=== PATIENT | female | born 1950 | race African-American/Black ===

== ENCOUNTER 2016-11-14 18:16 | Emergency (ER) | payer MEDICARE ==
[~2016-11-14] VITALS: Ht 152.4 cm; Wt 63.5 kg
[2016-11-14 18:20] VITALS: BP_SYST 123
[2016-11-14 19:13] LABS: BASOPHILS % (AUTO) 0.3 % (0.0-2.0); EOSINOPHILS # (AUTO) 0.3 K/uL (0.0-0.4); EOSINOPHILS % (AUTO) 3.6 % (0.0-4.0); HEMATOCRIT 33.3 % (36-48); LYMPHOCYTES # (AUTO) 1.6 K/uL (1.0-5.5); LYMPHOCYTES % (AUTO) 22.1 % (20.5-51.5); MEAN CORPUSCULAR HEMOGLOBIN 30 pg (27-31); MEAN CORPUSCULAR HGB CONC 33 % (32-36); MEAN CORPUSCULAR VOLUME 92 fL (79.0-98.0); MONOCYTES # (AUTO) 0.7 K/uL (0.0-1.0); MONOCYTES % (AUTO) 9.3 % (1.7-9.3); NEUTROPHILS # (AUTO) 4.5 K/uL (1.8-7.7); NEUTROPHILS % (AUTO) 64.7 % (40.0-70.0); RED BLOOD CELL COUNT(AUTO) 3.62 MIL/uL (4.2-6.2); RED CELL DISTRIBUTION WIDTH 13.1 % (9.0-15.0); WHITE BLOOD COUNT (AUTO) 7.1 K/uL (4.8-10.8)
[2016-11-14 19:23] LABS: CALCIUM 8.7 mg/dL (8.4-11.0); CREATININE 3.06 mg/dL (0.55-1.30); PLATELET COUNT (AUTO) 231 K/uL (130-430)
[2016-11-14 19:27] LABS: PROTHROMBIN TIME 10.5 SECS (9.5-12.5)
[2016-11-14 19:28] LABS: ALBUMIN 3.4 g/dL (3.4-4.8); TOTAL BILIRUBIN 0.8 mg/dL (0.0-1.0)
[2016-11-14] MEDS ORDERED: POTASSIUM CHLORIDE 20 MEQ TAB.PRT.SR PO ONE (20:15)
[2016-11-14] MEDS ORDERED: NITROGLYCERIN 1 INCH (GM) OINT. TD ONE (20:45)
[2016-11-14 23:39] VITALS: BP_SYST 124
== END 2016-11-14 23:39 | disposition short-term general hospital (02) ==
LOC: SED 18:16
DX: R07.89 Other chest pain (principal); I11.0 Hypertensive heart disease with heart failure; I50.9 Heart failure, unspecified; E11.9 Type 2 diabetes mellitus without complications
CPT/HCPCS: 36415; 71010; 80053; 83880; 84484; 85025; 85610-TC; 85730-TC; 93005; 99285

== ENCOUNTER 2018-04-04 15:11 | Emergency (ER) | payer MEDICARE, MEDICAID ==
[~2018-04-04] VITALS: Ht 152.4 cm; Wt 63.5 kg
[2018-04-04 15:11] VITALS: BP_SYST 133
[2018-04-04 16:44] LABS: BASOPHILS % (AUTO) 0.5 % (0.0-2.0); EOSINOPHILS # (AUTO) 0.1 K/uL (0.0-0.4); EOSINOPHILS % (AUTO) 4.6 % (0.0-4.0); HEMATOCRIT 36.6 % (36-48); HEMOGLOBIN 12.1 g/dL (12.0-16.0); LYMPHOCYTES # (AUTO) 0.8 K/uL (1.0-5.5); LYMPHOCYTES % (AUTO) 24.8 % (20.5-51.5); MEAN CORPUSCULAR HEMOGLOBIN 33 pg (27-31); MEAN CORPUSCULAR HGB CONC 33 % (32-36); MEAN CORPUSCULAR VOLUME 100 fL (79.0-98.0); MONOCYTES # (AUTO) 0.3 K/uL (0.0-1.0); NEUTROPHILS % (AUTO) 59.1 % (40.0-70.0); PLATELET COUNT (AUTO) 133 K/uL (130-430); RED BLOOD CELL COUNT(AUTO) 3.67 MIL/uL (4.2-6.2); RED CELL DISTRIBUTION WIDTH 13.3 % (9.0-15.0); WHITE BLOOD COUNT (AUTO) 3.2 K/uL (4.8-10.8)
[2018-04-04 16:58] LABS: CALCIUM 8.3 mg/dL (8.4-11.0); CREATININE 1.47 mg/dL (0.55-1.30); POTASSIUM 3.9 mmol/L (3.5-5.1); PROTHROMBIN TIME 9.8 SECS (9.5-12.5)
[2018-04-04] MEDS ORDERED: ALBUTEROL SULFATE 0.083% 2.5 MG/3 ML VIAL.NEB INH ONE (17:00)
[2018-04-04 17:03] LABS: ALBUMIN 2.9 g/dL (3.4-4.8); TOTAL BILIRUBIN 0.2 mg/dL (0.0-1.0)
[2018-04-04] MEDS ORDERED: ASPIRIN 81 MG TAB.CHEW PO ONE (18:30)
[2018-04-04 18:59] LABS: BILIRUBIN,URINE NEGATIVE (NEGATIVE); BLOOD, URINE NEGATIVE (NEGATIVE); CLARITY/URINE CLEAR (CLEAR); COLOR,URINE YELLOW (YELLOW); GLUCOSE,URINE NEGATIVE (NEGATIVE); KETONES,URINE NEGATIVE (NEGATIVE); LEUKOCYTE ESTERASE ,URINE NEGATIVE (NEGATIVE); NITRITE, URINE NEGATIVE (NEGATIVE); PH,URINE 5.5 (5.0-8.0); PROTEIN URINE 2+ (NEGATIVE); UROBILINOGEN,URINE 0.2 (0.2-1.0)
[2018-04-04 19:12] LABS: BACTERIA,URINE FEW /HPF (None Seen); MUCUS,URINE None Seen /LPF (None Seen); RBC,URINE NONE SEEN /HPF (0-3); WBC,URINE 0-3 /HPF (0-3)
[2018-04-04 23:30] VITALS: BP_SYST 113
== END 2018-04-04 23:30 | disposition short-term general hospital (02) ==
LOC: SED 15:11
DX: R07.89 Other chest pain (principal); I12.9 Hypertensive chronic kidney disease with stage 1 through stage 4 chronic kidney disease, or unspecified chronic kidney disease; E11.22 Type 2 diabetes mellitus with diabetic chronic kidney disease; N18.9 Chronic kidney disease, unspecified; Z86.79 Personal history of other diseases of the circulatory system
CPT/HCPCS: 36415; 71045; 80053; 81000; 82962; 83880; 84484; 85025; 85610; 86710; 93005; 94640; 99285; J7613

== ENCOUNTER 2019-03-21 17:36 | Emergency (ER) | payer OTHER, MEDICAID ==
[~2019-03-21] VITALS: Ht 154.9 cm; Wt 57.6 kg
[2019-03-21 17:36] VITALS: BP_SYST 162
--- NOTE | 2019-03-21 17:36 | NUR ---
BROUGHT IN BY [facility] AND PLACED IN BED #7, TRIAGED. REPORT GIVEN TO WAYNE
--- NOTE | 2019-03-21 18:00 | NUR ---
Patient AAO x 4 BIB [facility] with complaints of cough/congestion, body aches, and loss of appetite x 2 days. History of DM2, CHF, COPD, asthma, hypertension, prolapsed bladder. Bilateral expiratory wheezes noted on auscultation. Albuterol inhaler, Aspirin, and Mucinex used earlier this AM. Will continue to monitor.
--- NOTE | 2019-03-21 18:18 | NUR ---
12-lead EKG done at bedside. Given to Dr. De La Fuente for interpretation.
--- NOTE | 2019-03-21 18:30 | NUR ---
ER Dr. De La Fuente at bedside examining patient.
[2019-03-21] MEDS ORDERED: IPRATROPIUM/ALBUTEROL SULFATE 3 ML AMPUL.NEB (DUONEB) INH ONE (18:45)
--- NOTE | 2019-03-21 19:00 | NUR ---
Pt resting comfortably in bed, no signs of acute distress. Will cont. to monitor.
[2019-03-21 19:33] LABS: CALCIUM 8.5 mg/dL (8.4-11.0); CREATININE 1.15 mg/dL (0.55-1.30); POTASSIUM 4.3 mmol/L (3.5-5.1)
[2019-03-21 19:41] LABS: BASOPHILS % (AUTO) 0.5 % (0.0-2.0); EOSINOPHILS # (AUTO) 0.2 K/uL (0.0-0.4); HEMATOCRIT 33.2 % (36-48); HEMOGLOBIN 11.2 g/dL (12.0-16.0); LYMPHOCYTES # (AUTO) 0.5 K/uL (1.0-5.5); LYMPHOCYTES % (AUTO) 7.4 % (20.5-51.5); MEAN CORPUSCULAR HEMOGLOBIN 35 pg (27-31); MEAN CORPUSCULAR HGB CONC 34 % (32-36); MEAN CORPUSCULAR VOLUME 104 fL (79.0-98.0); MONOCYTES # (AUTO) 0.4 K/uL (0.0-1.0); MONOCYTES % (AUTO) 6.6 % (1.7-9.3); NEUTROPHILS # (AUTO) 5.4 K/uL (1.8-7.7); NEUTROPHILS % (AUTO) 82.5 % (40.0-70.0); PLATELET COUNT (AUTO) 170 K/uL (130-430); RED BLOOD CELL COUNT(AUTO) 3.19 MIL/uL (4.2-6.2); RED CELL DISTRIBUTION WIDTH 16.3 % (9.0-15.0); WHITE BLOOD COUNT (AUTO) 6.6 K/uL (4.8-10.8)
[2019-03-21 19:50] LABS: ALBUMIN 2.7 g/dL (3.4-4.8); TOTAL BILIRUBIN 0.5 mg/dL (0.0-1.0)
--- NOTE | 2019-03-21 20:00 | NUR ---
Pt resting comfortably in bed, no signs of acute distress. Will cont. to monitor.
--- NOTE | 2019-03-21 21:00 | NUR ---
Pt resting comfortably in bed, no signs of acute distress. Will cont. to monitor.
--- NOTE | 2019-03-21 22:04 | NUR ---
Pt reports that carvedilol is 25mg and hydrochlorothiazide is 50mg which she takes day and night. Current blood pressure is 161/68. ER made aware.
[2019-03-21] MEDS ORDERED: HYDROCHLOROTHIAZIDE 25 MG TABLET (HCTZ) PO ONE (22:15)
[2019-03-21] MEDS ORDERED: CARVEDILOL 6.25 MG TABLET (COREG) PO ONE (22:15)
--- NOTE | 2019-03-21 22:23 | NUR ---
Dr. Santana at bedside speaking to patient.
[2019-03-21] MEDS ORDERED: ALBUTEROL SULFATE 0.083% 2.5 MG/3 ML VIAL.NEB INH ONE (22:30)
[2019-03-21] MEDS ORDERED: AMOXICILLIN 500 MG CAPSULE PO ONE (22:30)
--- NOTE | 2019-03-21 22:53 | NUR ---
RT at bedside.
[2019-03-21 23:20] VITALS: BP_SYST 144
--- NOTE | 2019-03-21 23:42 | NUR ---
Patient given written and verbal discharge instructions and verbalizes understanding. ER MD Dr. Santana discussed with patient the results and treatment provided. Patient in stable condition. ID arm band removed. Rx of amoxicillin given. Patient educated on pain management and to follow up with PMD. Pain Scale 0/10. Opportunity for questions provided and answered. Medication side effect fact sheet provided.
== END 2019-03-21 23:42 | disposition home or self-care (01) ==
LOC: SED 17:36
DX: J06.9 Acute upper respiratory infection, unspecified (principal); E11.29 Type 2 diabetes mellitus with other diabetic kidney complication; N28.9 Disorder of kidney and ureter, unspecified; I10 Essential (primary) hypertension; F17.200 Nicotine dependence, unspecified, uncomplicated; Z86.73 Personal history of transient ischemic attack (TIA), and cerebral infarction without residual deficits
CPT/HCPCS: 36415; 71045; 80053; 83605; 84484; 85025; 87040; 93005; 94640; 99284; J7613; J7620